=== PATIENT | male | born 1970 | race Caucasian/White ===

== ENCOUNTER 2018-02-05 04:32 | Emergency (ER) | payer OTHER ==
[~2018-02-05] VITALS: Ht 172.7 cm; Wt 105.2 kg
[2018-02-05] MEDS ORDERED: NOHOMEMEDICATIONS (04:45)
[2018-02-05 05:10] LABS: MCV 87.8 fL (80.0-100.0); NUCLEATED RBCS 0 /100WBC
[2018-02-05 05:14] LABS: ABSOLUTE EOSINOPHILS 0.2 thou/uL (0.0-0.7); ABSOLUTE LYMPHOCYTES 3.4 thou/uL (0.8-5.3); ABSOLUTE MONOCYTES 0.7 thou/uL (0.0-1.2); ABSOLUTE NEUTROPHILS 4.6 thou/uL (1.6-8.1); BASOPHILS 0.4 %; EOSINOPHILS 2.1 %; HEMATOCRIT 41.7 % (42.0-52.0); HEMOGLOBIN 14.2 gm/dL (14.0-18.0); LYMPHOCYTES 38.4 %; MCHC 34.1 g/dL (28.0-37.0); MONOCYTES 7.7 %; MPV 9.1 fl. (7.2-11.1); PLATELET COUNT* 290 thou/uL (150-400); POLYS 51.4 %; RBC 4.74 mil/uL (4.50-6.00); RDW-CV 12.6 % (10.5-14.5); WBC 8.9 thou/uL (4.0-11.0)
[2018-02-05 05:26] LABS: APTT 31.3 Seconds (25.0-31.3); PROTIME 9.8 Seconds (9.20-11.50)
[2018-02-05 05:33] LABS: ANION GAP 10 mmol/L (7-16); BUN 12 mg/dL (7-18); CALCIUM 8.6 mg/dL (8.5-10.1); CHLORIDE 101 mmol/L (98-107); CO2 26 mmol/L (21-32); CREATININE 1.1 mg/dL (0.6-1.3); GLUCOSE 327 mg/dL (70-99); POTASSIUM 3.3 mmol/L (3.5-5.1); SODIUM 137 mmol/L (136-145)
[2018-02-05 05:44] LABS: ALBUMIN 3.6 g/dL (3.4-5.0); ALKALINE PHOSPHATASE 105 U/L (46-116); SGOT 74 U/L (15-37); SGPT 146 U/L (30-65); TOTAL BILIRUBIN 0.3 mg/dL (<0.1-1.0); TOTAL PROTEIN 6.9 g/dL (6.4-8.2); TROPONIN-I LEVEL <0.06 ng/mL (<0.06)
[2018-02-05 05:56] LABS: CHOLESTEROL 142 mg/dL (<200); HDL CHOLESTEROL 26 mg/dL (>40); LDL CHOLESTEROL 75 mg/dL (<100); SERUM ASSESSMENT CLEAR; TC:HDL 5.5 Ratio (Not establshd); TRIGLYCERIDE 209 mg/dL (<150); VLDL 42 mg/dL (<40)
[2018-02-05 06:35] LABS: URINE BILIRUBIN NEGATIVE (Negative); URINE BLOOD TRACE (Negative); URINE CLARITY CLEAR; URINE COLOR YELLOW; URINE GLUCOSE-RANDOM 3+ (Negative); URINE KETONES NEGATIVE (Negative); URINE LEUKOCYTES-REFLEX NEGATIVE (Negative); URINE NITRITE-REFLEX NEGATIVE (Negative); URINE PROTEIN NEGATIVE (Negative); URINE UROBILINOGEN 0.2 E.U./dl (0.2-1.0)
[2018-02-05] MEDS ORDERED: OTHER MISCELL (06:47)
[2018-02-05 06:53] VITALS: BP 131/86
--- NOTE | 2018-02-05 11:19 | EKG ---
[place] [address] ELECTROCARDIOGRAM REPORT Name: KRISTOPHER NEVAREZ [facility] [id number] Admission: 02/05/18 Attend Phys: Discharge: 02/05/18 Date of : 68 Report #: [id number] THIS REPORT FOR: //name// [facility] ED Test Date: 2018-02-05 Test Time: 04:40:22 Pat Name: KRISTOPHER NEVAREZ Department: Room: Gender: M Pharmacy Graduate Intern: : 1970 Requested By: Maricel Ness Order Number: [id number] MD: David Miranda Measurements Intervals [place] Rate: 109 P: 48 VT: 180 QRS: -37 QRSD: 96 T: 15 QT: 359 QTc: 484 Interpretive Statements Sinus tachycardia Left axis deviation Abnormal R-wave progression, late transition Borderline T abnormalities, anterior leads Borderline prolonged QT interval No previous ECG available for comparison Electronically Signed On 02-05-2018 11:19:32 LADLE POURER by David Miranda [email or web address] <ELECTRONICALLY SIGNED> By: David Miranda MD, [facility] 02/05/18 1119 0440 9 David Miranda MD, FACC /EPI
== END 2018-02-05 06:56 | disposition home or self-care (01) ==
LOC: M.ERS 04:32
PROVIDERS: Personal Emergency Response Attendant
DX: R73.9 Hyperglycemia, unspecified (principal); Z98.52 Vasectomy status